=== PATIENT | male | born 1995 | race Caucasian/White ===

== ENCOUNTER 2016-08-07 01:37 | Emergency (ER) | payer BC ==
--- NOTE | 2016-08-07 02:40 | ED ORDER SUMMARY ---
..... Patient: SHADI STEPHENS OrderSheet [facility] VisitID: [id number] [place] [address] 20y, M Registration Date/Time: 08/07/2016 ORDER SHEET Weight: 65.7 kg (stated) Allergies: No Known Drug Allergy GENERAL ORDERS: MEDICATION ORDERS: Tdap IM 0.5 mL (NOW) (02:13 08/07/2016 Ebenezer SMITH) (2:44 Ghulam Rizvi) IV FLUIDS: ORDER SHEET NOTES: [Electronically signed by Jourdan Johnson R.N. (02:52 08/07/2016)] [Electronically signed by Sami Alcocer MD (00:27 08/10/2016)] [Electronically locked/signed by Jourdan Johnson R.N. (02:52 08/07/2016)]
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
--- NOTE | 2016-08-07 02:40 | ED ORDER SUMMARY ---
..... Patient: SHADI STEPHENS OrderSheet [facility] VisitID: [id number] [place] [address] 20y, M Registration Date/Time: 08/07/2016 ORDER SHEET Weight: 65.7 kg (stated) Allergies: No Known Drug Allergy GENERAL ORDERS: MEDICATION ORDERS: Tdap IM 0.5 mL (NOW) (02:13 08/07/2016 Ebenezer SMITH) (2:44 Ghulam Rizvi) IV FLUIDS: ORDER SHEET NOTES: [Electronically signed by Jourdan Johnson R.N. (02:52 08/07/2016)] [Electronically signed by Sami Alcocer MD (00:27 08/10/2016)] [Electronically locked/signed by Jourdan Johnson R.N. (02:52 08/07/2016)]
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
--- NOTE | 2016-08-10 00:27 | ED MED RECONCILIATION SUMMARY ---
Patient: SHADI STEPHENS Medication Reconciliation Report [facility] VisitID: [id number] [place] [address] 20y, M Registration Date/Time: 08/07/2016 Weight: 65.7 kg Height/Length: 67 in. BMI: 22.7 ALLERGIES: No Known Drug Allergy The patient's Home Medications are listed below: NONE. The source(s) of the original Home Medication information: Not obtained. The following Medications were given to the patient in the Emergency Department: TDAP [IM] IM 0.5 mL, administered: 08/07/2016 2:44:00 AM The following Medications were prescribed to the patient: Acetaminophen (available over the counter): take according to label instructions. -- Sami Alcocer MD
--- NOTE | 2016-08-10 00:27 | ED MED RECONCILIATION SUMMARY ---
Patient: SHADI STEPHENS Medication Reconciliation Report [facility] VisitID: [id number] [place] [address] 20y, M Registration Date/Time: 08/07/2016 Weight: 65.7 kg Height/Length: 67 in. BMI: 22.7 ALLERGIES: No Known Drug Allergy The patient's Home Medications are listed below: NONE. The source(s) of the original Home Medication information: Not obtained. The following Medications were given to the patient in the Emergency Department: TDAP [IM] IM 0.5 mL, administered: 08/07/2016 2:44:00 AM The following Medications were prescribed to the patient: Acetaminophen (available over the counter): take according to label instructions. -- Sami Alcocer MD
--- NOTE | 2016-08-10 00:27 | ED MAR SUMMARY ---
..... Medication Administration Record [facility] [address] [place] [address] Patient: SHADI STEPHENS Visit ID: [id number] 20y, M Weight: 65.7 kg Height/Length: 67 in BMI: 22.7 ALLERGIES: No Known Drug Allergy Given 02:44 08/07/2016 Jourdan Johnson R.N. Medication Administered: TDAP [IM], Dose: 0.5 mL IM. Medication Ordered: Tdap IM 0.5 mL (NOW).
--- NOTE | 2016-08-10 00:27 | ED DISCHARGE INSTRUCTIONS ---
Patient: SHADI STEPHENS General Instructions [facility] VisitID: [id number] [place] [address] 20y, M Registration Date/Time: 08/07/2016 Single deep laceration to the left periorbital area.No foreign body present. INSTRUCTIONS Protect wound and keep wound area clean. Change dressing twice daily. Keep wounds dry. You may wash wounds briefly, then dry. Apply neosporin twice daily. Sutures should be removed in seven days. Warnings: GENERAL WARNINGS: Return or contact your physician immediately if your condition worsens or changes unexpectedly, if not improving as expected, or if other problems arise. OTC Medications: Acetaminophen (available over the counter): take according to label instructions. Follow-up: Follow up with your doctor in one week. Call for an appointment. Understanding of the discharge instructions verbalized by patient. ADDITIONAL INFORMATION Laceration, Face (Suture Or Tape) Alaceration is a cut through the skin. This will require stitches if it is deep. Minor cuts may be treated with surgical tape. Home care The following guidelines will help you care for your laceration at home: If a bandage was applied and it becomes wet or dirty, replace it. Otherwise, leave it in place for the first 24 hours, then change it once a day or as directed. If sutures were used, clean the wound daily: After removing the bandage, wash the area with soap and water. Use a wet cotton swab to loosen and remove any blood or crust that forms. After cleaning, keep the wound clean and dry. Talk with your doctor before applying any antibiotic ointment to the wound. Reapply a fresh bandage. You may remove the bandage to shower as usual after the first 24 hours, but do not soak the area in water (no swimming) until the sutures are removed. If surgical tape was used, keep the area clean and dry. If it becomes wet, blot it dry with a towel. The doctor may prescribe an antibiotic cream or ointment to prevent infection. Do not stop taking this medication until you have have finished the prescribed course or the doctor tells you to stop. The doctor may also prescribe medications for pain. Follow the doctor's instructions for taking these medications.If you have chronic liver or kidney disease or ever had a stomach ulcer or GI bleeding, talk with your doctor before using these medicines. Follow-up care Follow up with your health care provider. Most facial cuts heal in five days with no problem. However, even with proper treatment, a wound infection sometimes occurs. Therefore, check the wound daily for the warning signs listed below. Stitches should not be left in the face for more thanfivedays; otherwise, permanent stitch chi may form. If surgical tape closures were used, you may remove them yourself afterfivedays, if they have not fallen off by then. When to seek medical care Get prompt medical attention if any of these occur: Increasing pain in the wound Redness, swelling, or pus coming from the wound If sutures come apart or fall out before 5 days If the surgical tape closures fall off before 5 days, or the wound edges reopen Fever of 100.4F (38C) or higher, or as directed by your health care provider Bleeding not controlled by direct pressure Bandage Change If the bandage becomes wet or dirty, replace it. Otherwise, leave it in place for the first 24 hours. Then once a day: After removing the bandage, wash the area with soap and water. Use a wet cotton swab to loosen and remove any blood or crust that forms on the wound. After cleaning, apply a thin layer of antibiotic ointment or cream. Reapply the bandage. You may shower as usual after the first 24 hours. If the bandage is on an arm or leg, cover it with a plastic bag rubber banded at both ends before showering. No tub baths or swimming until the bandage is removed and the wound healed (at least 7 days). Laceration, Face (Suture Or Tape) Alaceration is a cut through the skin. This will require stitches if it is deep. Minor cuts may be treated with surgical tape. Home care The following guidelines will help you care for your laceration at home: If a bandage was applied and it becomes wet or dirty, replace it. Otherwise, leave it in place for the first 24 hours, then change it once a day or as directed. If sutures were used, clean the wound daily: After removing the bandage, wash the area with soap and water. Use a wet cotton swab to loosen and remove any blood or crust that forms. After cleaning, keep the wound clean and dry. Talk with your doctor before applying any antibiotic ointment to the wound. Reapply a fresh bandage. You may remove the bandage to shower as usual after the first 24 hours, but do not soak the area in water (no swimming) until the sutures are removed. If surgical tape was used, keep the area clean and dry. If it becomes wet, blot it dry with a towel. The doctor may prescribe an antibiotic cream or ointment to prevent infection. Do not stop taking this medication until you have have finished the prescribed course or the doctor tells you to stop. The doctor may also prescribe medications for pain. Follow the doctor's instructions for taking these medications.If you have chronic liver or kidney disease or ever had a stomach ulcer or GI bleeding, talk with your doctor before using these medicines. Follow-up care Follow up with your health care provider. Most facial cuts heal in five days with no problem. However, even with proper treatment, a wound infection sometimes occurs. Therefore, check the wound daily for the warning signs listed below. Stitches should not be left in the face for more thanfivedays; otherwise, permanent stitch chi may form. If surgical tape closures were used, you may remove them yourself afterfivedays, if they have not fallen off by then. When to seek medical care Get prompt medical attention if any of these occur: Increasing pain in the wound Redness, swelling, or pus coming from the wound If sutures come apart or fall out before 5 days If the surgical tape closures fall off before 5 days, or the wound edges reopen Fever of 100.4F (38C) or higher, or as directed by your health care provider Bleeding not controlled by direct pressure You have been given the following additional information: Laceration, Face (Suture Or Tape) Dressing Change Laceration, Face (Suture Or Tape) (Electronically signed by Sami Alcocer MD 08/10/2016 0:27)
--- NOTE | 2016-08-10 00:27 | ED MAR SUMMARY ---
..... Medication Administration Record [facility] [address] [place] [place] [address] Patient: SHADI STEPHENS Visit ID: [id number] 20y, M Weight: 65.7 kg Height/Length: 67 in BMI: 22.7 ALLERGIES: No Known Drug Allergy Given 02:44 08/07/2016 Jourdan Johnson R.N. Medication Administered: TDAP [IM], Dose: 0.5 mL IM. Medication Ordered: Tdap IM 0.5 mL (NOW).
== END 2016-08-07 02:50 | disposition home or self-care (01) ==
LOC: ED SRH 01:37
DX: S01.112A Laceration without foreign body of left eyelid and periocular area, initial encounter (principal); W22.8XXA Striking against or struck by other objects, initial encounter; Y93.9 Activity, unspecified; Y92.009 Unspecified place in unspecified non-institutional (private) residence as the place of occurrence of the external cause; Y99.9 Unspecified external cause status